=== PATIENT | male | born 1960 | race Caucasian/White ===

== ENCOUNTER 2017-06-10 05:38 | Emergency (ER) | payer OTHER ==
[~2017-06-10] VITALS: Ht 175.3 cm; Wt 77.1 kg
--- NOTE | 2017-06-10 05:50 | ED UPPER/LOWER EXTREMITY COMPL ---
History of Present Illness General Chief Complaint: General Adult Stated Complaint: "LT ARM PAIN AND NUMBNESS" Source: patient, family Exam Limitations: no limitations Vital Signs & Intake/Output Vital Signs & Intake/Output Vital Signs Date Time Temp Pulse Resp B/P B/P Pulse O2 O2 Flow FiO2 Mean Ox Delivery Rate 06/10 0759 98.6 59 18 126/61 97 Room Air 06/10 0600 100 Room Air 06/10 0546 65 18 144/83 100 Room Air Allergies Coded Allergies: No Known Allergies (06/10/17) Triage Nurses Notes Reviewed? yes HPI: Patient states that his left shoulder has been aching on and off for the past 3 days. Since yesterday afternoon he is felt a numbness sensation to his left biceps area. This morning his left forearm also had numbness sensation. He told his about it, who is a nurse, and she brought him into the emergency department for evaluation. Patient states that there is a point of maximal pain to the anterior aspect of his left shoulder. The pain radiates as noted above. There is no radiation into his chest. He feels no shortness of breath. At its worst pain is 6 out of 10. (Jessica LONDON,Davis Muhammad) Reconcile Medications Baclofen 10 MG TABLET 1 TAB PO TIDPRN PRN muscle spasm/strain Ibuprofen 600 MG TABLET 1 TAB PO Q6PRN PRN pain with food (Braydon Wang MD) Past History Travel History Traveled to [place] past 21 day No Medical History Any Pertinent Medical History? none Neurological: NONE EENT: NONE Cardiovascular: NONE Respiratory: NONE Gastrointestinal: NONE Hepatic: NONE Renal: NONE Musculoskeletal: NONE Psychiatric: NONE Endocrine: NONE Blood Disorders: NONE Cancer(s): NONE FOOT CASTER/Reproductive: NONE Surgical History Surgical History: non-contributory Psychosocial History What is your primary language Mozambican Tobacco Use: Current Daily Use Daily Tobacco Use Amount/Type: => 5 Cigarettes daily ETOH Use: occasional use Illicit Drug Use: denies illicit drug use Family History Hx Contributory? No (Jessica LONDON,Davis Muhammad) Review of Systems Review of Systems Constitutional: Reports: no symptoms. EENTM: Reports: no symptoms. Respiratory: Reports: no symptoms. Cardiovascular: Reports: no symptoms. Gastrointestinal/Abdominal: Reports: no symptoms. Genitourinary: Reports: no symptoms. Musculoskeletal: Reports: see HPI, joint pain. Skin: Reports: no symptoms. Neurological/Psychological: Reports: see HPI, numbness. Hematologic/Endocrine: Reports: no symptoms. Immunological: Reports: no symptoms. All Other Systems: Reviewed and Negative (Jessica LONDON,Davis Muhammad) Physical Exam Physical Exam General Appearance: well developed/nourished, mild distress Head: atraumatic Eyes: Bilateral: PERRL, EOMI. Ears, Nose, Throat: normal pharynx, normal ENT inspection, hearing grossly normal Neck: normal inspection, supple, NO JVD Cardiovascular/Respiratory: normal breath sounds, normal peripheral pulses, regular rate/rhythm, no respiratory distress Peripheral Pulses: 3+ radial (R), 3+ radial (L) Back: normal inspection, normal range of motion, no vertebral tenderness Shoulder Left: tenderness (POINT TENDERNESS) Elbow Left: normal range of motion, normal inspection Hand Left: normal inspection, normal range of motion Neurologic/Tendon: normal sensation, normal motor functions, normal tendon functions Skin: intact, normal color, warm/dry Lymphatic: no anterior cervical elizabeth (Jessica LONDON,Davis Muhammad) Progress Differential Diagnosis: sprain, TENDONITIS, AMI Plan of Care: Orders Procedure Date/time Status Heart Healthy Diet 06/10 L Active Durable Medical Equipment 06/10 0932 Active TROPONIN LEVEL 06/10 0900 Complete EKG 06/10 0900 Active Telemetry/Carpenter Mold 06/10 0548 Active TROPONIN LEVEL 06/10 0548 Complete COMPREHENSIVE METABOLIC PANEL 06/10 0548 Complete CBC WITHOUT DIFFERENTIAL 06/10 0548 Complete EKG 06/10 0544 Active Current Medications Sig/Kevin Start time Last Medication Dose Stop Time Status Admin Ibuprofen 600 MG ONCE ONE 06/10 0945 UNVr (Motrin) 06/10 0946 Laboratory Tests 06/10/17 0805: Troponin I < 0.01 06/10/17 0559: Anion Gap 11, Estimated GFR > 60, BUN/Creatinine Ratio 15.0, Glucose 106 H, Calcium 9.9, Total Bilirubin 0.7, AST 18, ALT 21, Alkaline Phosphatase 78, Troponin I < 0.01, Total Protein 7.1, Albumin 4.3, Globulin 2.8, Albumin/ Globulin Ratio 1.5, CBC w Diff NO MAN DIFF REQ, RBC 5.03, MCV 89.4, MCH 29.5, MCHC 33.0, RDW 13.7, MPV 8.3, Gran % 55.4, Lymphocytes % 32.4, Monocytes % 8.1, Eosinophils % 3.2, Basophils % 0.9, Absolute Granulocytes 4.8, Absolute Lymphocytes 2.8, Absolute Monocytes 0.7 H, Absolute Eosinophils 0.3, Absolute Basophils 0.1 Diagnostic Imaging: Viewed by Me: Radiology Read. Discussed w/RAD: Radiology Read. Radiology Impression: PATIENT: JONNIE SU PRESENT AGE: 57 PATIENT ACCOUNT NO: [id number] : 58 LOCATION: ER ORDERING PHYSICIAN: Davis Lopez MD SERVICE DATE: 06/10/17 EXAM TYPE: RAD - XRY-SHOULDER COMPLETE-LEFT EXAMINATION: XR SHOULDER, LEFT CLINICAL INFORMATION: Shoulder pain COMPARISON: None TECHNIQUE: Three views of the left shoulder. FINDINGS: No acute fracture or dislocation. The left humeral head articulates appropriately with the glenoid. The acromioclavicular joint is intact. The visualized ribs are intact. IMPRESSION: No fracture or malalignment. No significant arthritic changes. DICTATED BY: Morgan Carr MD DATE/TIME DICTATED:06/10/17628 AUTO TRAVEL COUNSELOR:FRANNY DATE/TIME TRANSCRIBED:628 CONFIDENTIAL, DO NOT COPY WITHOUT APPROPRIATE AUTHORIZATION. < Electronically signed in Other Vendor System> SIGNED BY: Morgan Carr MD 06/10/17632 CXR Impression: PATIENT: JONNIE SU PRESENT AGE: 57 PATIENT ACCOUNT NO: [id number] : 58 LOCATION: [facility] ORDERING PHYSICIAN: Davis Lopez MD SERVICE DATE: 06/10/17 EXAM TYPE: RAD - XRY-CHEST XRAY, TWO VIEWS EXAMINATION: XR CHEST CLINICAL INFORMATION: Chest pain COMPARISON: None TECHNIQUE: 2 views of the chest were obtained. FINDINGS: The lungs are well expanded. There is no focal consolidation, edema, or effusion. Bronchial wall thickening noted. No pneumothorax. The cardiomediastinal silhouette is within normal limits. No acute osseous abnormality. IMPRESSION: No dense consolidation. Bronchial wall thickening can be seen with a small airways process such as asthma or atypical/viral infection. DICTATED BY: Morgan Carr MD DATE/TIME DICTATED:06/10/17628 AUTO TRAVEL COUNSELOR:FRANNY DATE/TIME TRANSCRIBED:06/10/17628 CONFIDENTIAL, DO NOT COPY WITHOUT APPROPRIATE AUTHORIZATION. <Electronically signed in Other Vendor System> SIGNED BY: Morgan Carr MD 06/10/17631 Initial ED EKG: SR WITH J POINT ELEVATION, NO ISCHEMIC CHANGES, NO OLD TO COMPARE Hand-Off Endorsed To: Braydon Wang MD Endorsed Time: 0700 Pending: labs (Jessica LONDON,Davis Muhammad) Repeat EKG: unchanged Rhythm Strip: normal sinus rhythm (Braydon Wang MD) Departure Departure Condition: Stable Departure Forms: Customer Survey General Discharge Information (Davis Lopez MD) Departure Time of Disposition: 932 Disposition: HOME OR SELF CARE Clinical Impression Primary Impression: Rotator cuff syndrome of left shoulder Secondary Impressions: Tendonitis Referrals: Erika LONDON,Cecilio Patterson Call for orthopedic follow up Prescriptions: Current Visit Scripts Ibuprofen 1 TAB PO Q6PRN PRN pain #50 TAB with food Baclofen 1 TAB PO TIDPRN PRN muscle spasm/strain #30 TAB (Braydon Wang MD)
[2017-06-10 06:19] LABS: ABSOLUTE BASOPHIL COUNT 0.1 /CUMM (0.0-0.2); ABSOLUTE EOSINOPHIL COUNT 0.3 /CUMM (0.0-0.7); ABSOLUTE GRANULOCYTE CT 4.8 /CUMM (1.4-6.5); ABSOLUTE LYMPH COUNT 2.8 /CUMM (1.2-3.4); ABSOLUTE MONOCYTE COUNT 0.7 /CUMM (0.10-0.60); BASOPHIL % 0.9 % (0.0-2.0); EOSINOPHIL % 3.2 % (0-5); GRANULOCYTE % 55.4 % (42.2-75.2); MEAN CORPUSCULAR HGB 29.5 PG (27.0-31.0); MEAN CORPUSCULAR VOLUME 89.4 FL (80.0-94.0); MEAN PLATELET VOLUME 8.3 FL (7.4-10.4); PLATELET COUNT 213 /CUMM (130-400); RBC DISTRIBUTION WIDTH 13.7 % (11.5-14.5); RED BLOOD CELL CT 5.03 /CUMM (4.70-6.10); WHITE BLOOD CELL COUNT 8.7 /CUMM (4.8-10.8)
--- NOTE | 2017-06-10 06:32 | RADIOLOGY REPORT ---
EXAMINATION: XR CHEST CLINICAL INFORMATION: Chest pain COMPARISON: None TECHNIQUE: 2 views of the chest were obtained. FINDINGS: The lungs are well expanded. There is no focal consolidation, edema, or effusion. Bronchial wall thickening noted. No pneumothorax. The cardiomediastinal silhouette is within normal limits. No acute osseous abnormality. IMPRESSION: No dense consolidation. Bronchial wall thickening can be seen with a small airways process such as asthma or atypical/viral infection.
--- NOTE | 2017-06-10 06:33 | RADIOLOGY REPORT ---
EXAMINATION: XR SHOULDER, LEFT CLINICAL INFORMATION: Shoulder pain COMPARISON: None TECHNIQUE: Three views of the left shoulder. FINDINGS: No acute fracture or dislocation. The left humeral head articulates appropriately with the glenoid. The acromioclavicular joint is intact. The visualized ribs are intact. IMPRESSION: No fracture or malalignment. No significant arthritic changes.
[2017-06-10] MEDS ORDERED: BACLOFEN10 M1 PO (09:34)
[2017-06-10] MEDS ORDERED: IBUPROFEN600 M1 PO (09:34)
[2017-06-10 09:59] VITALS: BP 124/67
== END 2017-06-10 10:01 ==
LOC: ERH 05:38
PROVIDERS: Emergency Medicine
DX: M75.102 Unspecified rotator cuff tear or rupture of left shoulder, not specified as traumatic (principal); M75.92 Shoulder lesion, unspecified, left shoulder
CPT/HCPCS: 71046; 73030-LT; 93005; 93010